=== PATIENT | female | born 1990 | race Caucasian/White ===

== ENCOUNTER 2021-04-20 18:00 | Inpatient (IN) | payer OTHER ==
[~2021-04-20 18:00] MED LIST: Bupivacaine 0.25% HCL 30 ML VIAL ONE
[2021-04-20] MEDS ORDERED: Carboprost 250 MCG/ML AMP IM PRN (20:01)
[2021-04-20] MEDS ORDERED: Ondansetron PF 4 MG/2 ML Vial IVP PRN (20:01)
[2021-04-20] MEDS ORDERED: Butorphanol Tartrate 1 MG/ML VIAL SLOW IVP PRN (20:01)
[2021-04-20] MEDS ORDERED: Ibuprofen 800 MG TAB PO PRN (20:01)
[2021-04-20] MEDS ORDERED: Acetaminophen 500 MG TAB PO PRN (20:01)
[2021-04-20] MEDS ORDERED: Misoprostol 200 MCG TAB PR PRN (20:01)
[2021-04-20] MEDS ORDERED: HYDROcodone/Acetaminophen 5/325 mg Tablet PO PRN (20:01)
[2021-04-20] MEDS ORDERED: Zolpidem Tartrate 5 MG TAB PO PRN (20:01)
[2021-04-20] MEDS ORDERED: Lidocaine 1% (PF) 30 ML VIAL SC PRN (20:01)
[2021-04-20] MEDS ORDERED: Diphenoxylate HCl/Atropine Tablet PO PRN (20:01)
[2021-04-20] MEDS ORDERED: hydrALAZINE 20 MG/ML VIAL SLOW IVP PRN (20:01)
[2021-04-20] MEDS ORDERED: Methylergonovine 0.2 MG/ML VIAL IM PRN (20:01)
[2021-04-20] MEDS ORDERED: Promethazine HCl 25 MG/ML VIAL IM PRN (20:01)
[2021-04-20] MEDS ORDERED: NS w/ Oxytocin 30 units 500 ML IV SCH (20:01)
[2021-04-20 20:02] VITALS: BMI 35.6
[2021-04-20] MEDS ORDERED: Penicillin G Potassium 5 MILL.UNITS in Sodium Chloride 0.9% 100 ML IVPB SCH (20:15)
[2021-04-20 20:32] LABS: Hemoglobin 10.6 g/dL (12.0-15.5); Mean Corpuscular Volume 81.7 fl (81.6-98.3); Mean Platelet Volume 12.6 fl (7.4-10.4); Platelet Count 249 10x3/uL (150-450); RBC Distribution Width 13.6 % (11.5-14.5); Red Blood Cell (RBC) Count 3.93 10x6/uL (3.90-5.03); White Blood Cell (WBC) Count 10.2 10x3/uL (3.5-10.5)
[2021-04-20] MEDS: Misoprostol 100 MCG TAB VAG SCH (20:42)
[2021-04-20 20:48] LABS: ALT (SGPT) 13 U/L (8-55); AST (SGOT) 24 U/L (5-34); Albumin 3.2 g/dL (3.5-5.0); Alkaline Phosphatase 193 U/L (40-110); Anion Gap 11 mmol/L (10-20); BUN (Urea Nitrogen) 10 mg/dL (7.0-18.7); Bilirubin, Total 0.1 mg/dL (0.2-1.2); Calc. Creatinine Clearance 196 mL/min (70-130); Calcium 8.8 mg/dL (7.8-10.44); Carbon Dioxide 21 mmol/L (22-29); Chloride 106 mmol/L (98-107); Glucose 91 mg/dL (70-105); Potassium 4.3 mmol/L (3.5-5.1); Protein, Total 6.2 g/dL (6.0-8.3); Sodium 134 mmol/L (136-145)
[2021-04-20 21:05] LABS: Syphilis Antibody Nonreactive (Nonreactive); Syphilis Antibody Index 0.09 S/CO (<1.00 Non-Reactive)
[2021-04-20 21:06] LABS: HBSAg Index 0.21 S/CO (0-0.99); Hep B Surf Ag Non-Reactive S/CO (NonReactive)
[2021-04-21 04:56] LABS: SARS-CoV-2 NAA Rapid Test Not Detected (NotDetected)
[2021-04-21] MEDS: Penicillin G 2.5 MILL.units 2.5 MILL.UNITS in Premix Bag 1 BAG IVPB SCH ×3 (05:00→13:58)
[2021-04-21] MEDS ORDERED: Fentanyl 2 mcg/Bup 0.1% Cadd 100 ML ONE (07:04)
[2021-04-21] MEDS: Misoprostol 100 MCG TAB VAG SCH ×3 (07:26→13:58)
[2021-04-21] MEDS ORDERED: Naloxone HCl 0.4 mg/ml Vial IVP PRN ×2 (07:27)
[2021-04-21] MEDS ORDERED: ePHEDrine Sulfate 50 MG/10 ML VIAL SLOW IVP PRN (07:27)
[2021-04-21] MEDS ORDERED: Acetaminophen 325 MG TAB PO PRN (07:27)
[2021-04-21] MEDS ORDERED: Ondansetron PF 4 MG/2 ML Vial IVP PRN ×2 (07:27→12:42)
[2021-04-21] MEDS ORDERED: Lactated Ringer's 500 ML IV PRN (07:27)
[2021-04-21] MEDS ORDERED: Promethazine HCl 25 MG/ML VIAL IM PRN ×2 (07:27→12:42)
[2021-04-21] MEDS ORDERED: Hydrocerin (Eucerin) Cream 120 gm Jar TOP PRN (07:27)
[2021-04-21] MEDS ORDERED: diphenhydrAMINE 50 MG/ML VIAL IVP PRN (07:27)
[2021-04-21] MEDS ORDERED: Communication Order-Pharmacy FS SCH (07:30)
[2021-04-21] MEDS ORDERED: Fentanyl 2 mcg/Bupivacaine 0.1% Cassette 100 ML EPIDURAL SCH (07:30)
[2021-04-21] MEDS: Lactated Ringer's 1,000 ML IV SCH ×2 (07:39→13:58)
[2021-04-21] MEDS ORDERED: Fentanyl 100 MCG/2 ML VIAL ONE (08:25)
[2021-04-21] MEDS: NS w/ Oxytocin 30 units 500 ML IV SCH ×2 (10:42→11:12)
[2021-04-21] MEDS ORDERED: Benzocaine-Menthol 82.5 ML CAN TOP PRN (12:42)
[2021-04-21] MEDS ORDERED: Preparation H Ointment 28 GM TUBE PR PRN (12:42)
[2021-04-21] MEDS ORDERED: Boostrix 0.5 ML (Tdap) VIAL IM ONE (12:42)
[2021-04-21] MEDS ORDERED: Bisacodyl 10 MG SUPP PR PRN (12:42)
[2021-04-21] MEDS ORDERED: diphenhydrAMINE 25 MG CAP PO PRN (12:42)
[2021-04-21] MEDS ORDERED: Lanolin Ointment 7 GM TUBE TOP PRN (12:42)
[2021-04-21] MEDS ORDERED: hydrALAZINE 20 MG/ML VIAL SLOW IVP PRN (12:42)
[2021-04-21] MEDS ORDERED: HYDROcodone/Acetaminophen 5/325 mg Tablet PO PRN ×2 (12:42)
[2021-04-21] MEDS ORDERED: Milk Of Magnesia 30 ML UDCUP PO PRN (12:42)
[2021-04-21] MEDS: Ibuprofen 800 MG TAB PO SCH ×2 (14:45→21:52)
[2021-04-21] MEDS: Ferrous Sulfate 325 MG TAB PO SCH (20:36)
[2021-04-21] MEDS: Docusate 100 MG CAP PO SCH (21:52)
[2021-04-22] MEDS: Ibuprofen 800 MG TAB PO SCH ×3 (05:03→21:11)
[2021-04-22] MEDS: Ferrous Sulfate 325 MG TAB PO SCH ×2 (09:53→17:06)
[2021-04-22] MEDS: Prenatal Vitamin 1 TAB PO SCH (09:54)
[2021-04-22] MEDS: Docusate 100 MG CAP PO SCH ×2 (09:54→21:11)
[2021-04-23] MEDS: Ibuprofen 800 MG TAB PO SCH ×2 (05:46→13:31)
[2021-04-23 07:50] VITALS: BP 118/73; TEMP 98
[2021-04-23] MEDS: Prenatal Vitamin 1 TAB PO SCH (08:18)
[2021-04-23] MEDS: Docusate 100 MG CAP PO SCH (08:18)
[2021-04-23] MEDS: Ferrous Sulfate 325 MG TAB PO SCH ×2 (08:19→16:58)
== END 2021-04-23 17:00 | disposition home or self-care (01) | DRG 806 ==
LOC: CSHLD 19:27 → CSHPP 04-21 13:16
PROVIDERS: ADMIT Student in an Organized Health Care Education/Training Program; ATTEND Student in an Organized Health Care Education/Training Program
PROC: 10E0XZZ Delivery of Products of Conception, External Approach (ICD-10-PCS; principal; 2021-04-21)
PROC: 3E0P7VZ Introduction of Hormone into Female Reproductive, Via Natural or Artificial Opening (ICD-10-PCS; 2021-04-21)
PROC: 3E033VJ Introduction of Other Hormone into Peripheral Vein, Percutaneous Approach (ICD-10-PCS; 2021-04-21)
PROC: 0HQ9XZZ Repair Perineum Skin, External Approach (ICD-10-PCS; 2021-04-21)
DX: O13.4 Gestational [pregnancy-induced] hypertension without significant proteinuria, complicating childbirth (principal); O41.03X0 Oligohydramnios, third trimester, not applicable or unspecified; Z37.0 Single live birth; Z20.822 Contact with and (suspected) exposure to COVID-19; Z3A.38 38 weeks gestation of pregnancy; O70.0 First degree perineal laceration during delivery; O99.824 Streptococcus B carrier state complicating childbirth; O42.02 Full-term premature rupture of membranes, onset of labor within 24 hours of rupture; O69.81X0 Labor and delivery complicated by cord around neck, without compression, not applicable or unspecified
CPT/HCPCS: 51702; 80053; 85027; 86780; 86850; 86900; 86901; 87340; J2540; J2590; J3490; J7120; S0020; U0002